=== PATIENT | male | born 2000 | race African-American/Black ===

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

== ENCOUNTER 2021-05-11 19:18 | Emergency (ER) | payer OTHER ==
[2021-05-11 19:28] VITALS: BP 138/82; PULSE 92; TEMP 97; BMI 33.7
[2021-05-11] MEDS ORDERED: KETOROLAC TROMETHAMINE 60 MG/2 ML VIAL IM ONE (20:23)
[2021-05-11] MEDS ORDERED: KETOROLAC TROMETHAMINE 60 MG/2 ML VIAL ONE (20:34)
== END 2021-05-11 20:46 | disposition home or self-care (01) ==
LOC: JERFT 19:18
PROC: 3E0233Z Introduction of Anti-inflammatory into Muscle, Percutaneous Approach (ICD-10-PCS; principal; 2021-05-11)
DX: S16.1XXA Strain of muscle, fascia and tendon at neck level, initial encounter (principal); S39.012A Strain of muscle, fascia and tendon of lower back, initial encounter; V49.40XA Driver injured in collision with unspecified motor vehicles in traffic accident, initial encounter
CPT/HCPCS: 99284-25

== ENCOUNTER 2021-07-24 23:07 | Emergency (ER) | payer SELFPAY ==
[2021-07-24 23:11] VITALS: BP 158/95; PULSE 108; TEMP 97.6; BMI 35.4
[2021-07-25] LABS: EPI CELLS 6 /uL (0-25.1); HYALINE CASTS 7 /uL (0-3.1); PH,URINE 5.5 (5.0-8.0); URINE APPEARANCE CLEAR; URINE BACTERIA 13 /uL (0-1359); URINE BILIRUBIN NEGATIVE (NEGATIVE); URINE COLOR YELLOW; URINE GLUCOSE (UA) TRACE (NEGATIVE); URINE KETONE TRACE (NEGATIVE); URINE LEUK ESTERASE TRACE (NEGATIVE); URINE NITRITE NEGATIVE (NEGATIVE); URINE PROTEIN NEGATIVE (NEGATIVE); URINE RBC 5 /uL (0-23.9); URINE UROBILINOGEN 0.2 mg/dL (0.2-1.0); URINE WBC 230 /uL (0-25.8)
[2021-07-27 21:23] LABS: HIV INTERPRETATION NEGATIVE (NEGATIVE)
== END 2021-07-25 00:24 | disposition home or self-care (01) ==
LOC: JER 23:07
DX: Z20.2 Contact with and (suspected) exposure to infections with a predominantly sexual mode of transmission (principal)
CPT/HCPCS: 36415; 81003; 87389; 87491; 87591; 87661; 99283-25

== ENCOUNTER 2022-03-05 18:52 | Emergency (ER) | payer OTHER ==
[2022-03-05 19:02] VITALS: BP 147/94; BMI 34.0
[2022-03-05] MEDS ORDERED: SODIUM CHLORIDE 1,000 ML IV STA (20:19)
[2022-03-05] MEDS ORDERED: METOCLOPRAMIDE HCL INJECTION 10 MG/2 ML VIAL IVPUSH ONE (20:20)
[2022-03-05] MEDS ORDERED: KETOROLAC TROMETHAMINE 30 MG/1 ML VIAL IM ONE (20:21)
[2022-03-05] MEDS ORDERED: METOCLOPRAMIDE HCL INJECTION 10 MG/2 ML VIAL ONE (20:32)
[2022-03-05] MEDS ORDERED: KETOROLAC TROMETHAMINE 30 MG/1 ML VIAL ONE (20:33)
[2022-03-05 20:45] VITALS: TEMP 98.6
[2022-03-05 20:47] VITALS: PULSE 86
== END 2022-03-05 21:50 | disposition home or self-care (01) ==
LOC: JERFT 18:52
PROC: 3E033NZ Introduction of Analgesics, Hypnotics, Sedatives into Peripheral Vein, Percutaneous Approach (ICD-10-PCS; principal; 2022-03-05)
PROC: 3E0233Z Introduction of Anti-inflammatory into Muscle, Percutaneous Approach (ICD-10-PCS; 2022-03-05)
PROC: 3E033GC Introduction of Other Therapeutic Substance into Peripheral Vein, Percutaneous Approach (ICD-10-PCS; 2022-03-05)
PROC: 3E0337Z Introduction of Electrolytic and Water Balance Substance into Peripheral Vein, Percutaneous Approach (ICD-10-PCS; 2022-03-05)
DX: G43.909 Migraine, unspecified, not intractable, without status migrainosus (principal)
CPT/HCPCS: 99285-25

== ENCOUNTER 2023-09-18 18:33 | Emergency (ER) | payer OTHER ==
[2023-09-18 19:02] VITALS: BP 141/80; PULSE 90; RESP 16; TEMP 98.4; BMI 31.6
== END 2023-09-18 21:23 | disposition left against medical advice (07) ==
LOC: JER 18:33
DX: R51.9 Headache, unspecified (principal); R11.10 Vomiting, unspecified; R50.9 Fever, unspecified; R05.9 Cough, unspecified
CPT/HCPCS: 82962; 93005; 93010; 99281-25